=== PATIENT | male | born 1945 | race African-American/Black ===

== ENCOUNTER → 2017-02-02 | Outpatient (CLI) | payer MEDICARE, OTHER ==
[~2017-02-02] MED LIST: ACCU-CHEK1 COMB.PKG; ADVIL200 M1 PO; AMARYL2 MG PO; AMLODIPINE BESY10 MG PO; ASPIRIN EC81 M1 PO; ASPIRIN81 M1 PO; BENADRYL25 M1 PO; BP MEDS; CIPRO; CIPRO PO; COZAAR100 MG PO; DOXYCYCLINE PO; EPIPEN0.3 MG/0.1 IM; FLAGYL PO; GERITOL COMPLETE; HYDROCODON-ACE1 EAC9 PO; IBUPROFEN; LOSARTAN POTASS50 MG PO; METFORMIN; METFORMIN PO; MICARDIS HCT; MILK OF MAGNESIA PO; NAPROXEN PO; NORVASC PO; NORVASC10 MG PO; OMNICEF300 MG PO; PEPCID AC20 M2 PO; PERCOCET5/325 PO; PREDNISONE PO; SULAR; TRAMADOL HCL50 M1 PO; TYLOX 5/500 CAP1 CAP; VICODIN 5/1 TAB 5/50 PO
--- NOTE | ~2017-02-02 | MR113 ---
[facility] A Service of [facility] & [facility] RADIOLOGY TEXT RESULTS PATIENT: LYN BOB LOCATION: [facility] : 44 UNIT #: [id number] AGE: [address]: Brad Smith MD SEX: M ORDER DR: [id number] [address] [address] [id number] O MR#: [id number] Acc #: [id number] NAME: LYN BOB. : 1945 SEX: M STUDY DATE/TIME: 02/02/2017 15:39 UNIT: [facility] ROOM: STUDY DESCRIPTION: MR Lumbar Wo Contrast Attending Physician: Brad Smith M.D. Referring Physician: Brad Smith M.D. Ordering Physician: Brad Smith M.D. Primary Care Physician: Brad Smith M.D. MRI CENTER REPORT This report is preliminary unless electronic signature is present. EXAM MRI of the lumbar spine without contrast dated 02/02/2017. COMPARISON MRI lumbar spine without contrast dated 10/12/2006. HISTORY Low back pain with right-sided radiculopathy for a week. Decreased range of movement. Unstable. Prior history of prostate cancer diagnosed in 2003. FINDINGS Multisequence, multiplanar imaging of the lumbar spine was obtained without contrast. Vertebral body heights are preserved. There is mild retrolisthesis of L1 with respect to L2 and anterolisthesis of L4 with respect to L3 and L5 by 1-2 mm. Conus terminates at L1. Signal of conus and cauda equina are within normal limits. There is mild edema noted within the intraspinous ligament of L4-5 with some inflammatory change in this region. Adjacent bones do not demonstrate any edema. Retroperitoneum demonstrates multiple bilateral renal lesions which are incompletely characterized on the current study. T12-L1: Disc osteophyte complex with superimposed right central to left subarticular broad-based disc protrusion which is most prominent in the left central region. Mild bilateral facet changes, mild canal stenosis is seen without neural foraminal narrowing. L1-2: Disc osteophyte complex with superimposed left maerxav-kj-dqvjr subarticular moderate protrusion which is most prominent in the right central region. Mild bilateral facet changes and ligamentum flavum thickening are noted with moderate canal stenosis. Mild right lateral recess and mild inferior bilateral neural foraminal narrowing are present. [facility] A Service of [facility] & [facility] RADIOLOGY TEXT RESULTS PATIENT: LYN BOB [id number] 44 UNIT #: [id number] AGE: [address]: Brad Smith MD SEX: M ORDER DR: L2-3: Moderate concentric disc bulge with superimposed uzoch-sj-qvya central protrusion with a suspicious extruded component in the right central region measuring about a centimeter in height. Minimal superior and inferior migration is seen. Severe canal stenosis, moderate bilateral facet hypertrophic changes, ghjwvcxp-sv-piedvy bilateral ligamentum flavum thickening, mild to moderate right and jngzzqhe-sd-itvano left lateral recess stenosis are noted. Small bilateral foraminal to extraforaminal broad-based protrusions are noted with mild inferior bilateral neural foraminal narrowing. L3-4: Moderate disc bulge with superimposed right central to left subarticular moderate broad-based protrusion with an extruded component in the left subarticular region. Utfmhsfi-fo-vwakrx left and mild to moderate right facet hypertrophic changes are noted with severe bilateral ligamentum flavum thickening. Severe canal stenosis is seen with moderate to severe right and severe left lateral recess stenosis. Moderate bilateral neural foraminal narrowing is seen. L4-5: Moderate disc bulge with very severe left and mzifgari-mk-eeibnf right facet hypertrophic change. Severe bilateral ligamentum flavum thickening is noted with severe canal stenosis. Moderate to severe right and severe left lateral recess stenosis are noted with moderate bilateral neural foraminal narrowing. Edema and inflammation is noted in the intraspinous ligament and adjacent soft tissue. L5-S1: Moderate disc bulge with superimposed left central annular fissure. Mild bilateral facet changes are noted with mild bilateral lateral recess stenosis and fgsc-zo-wqlsgnng bilateral neural foraminal narrowing. IMPRESSION 1. Degenerative changes are at multiple levels, worst at L2-3 to L4-5 levels as described above with significant canal stenosis, lateral recess stenosis, and neural foraminal narrowing. 2. Bilateral renal multiple lesions are noted which are incompletely characterized on the current study. Some of them are also noted in the prior MRI lumbar spine from 2005 but it appears to have worsened in the interval. Correlate with prior CT abdomen from 12/30/2009 which demonstrates multiple bilateral renal cysts. Dictated by... Aquilino Garcia M.D. THIS IS AN ELECTRONICALLY VERIFIED REPORT Aquilino Garcia M.D. at 02/04/2017 2:56 PM CPR/tmw [facility]. [facility] A Service of [facility] RADIOLOGY TEXT RESULTS PATIENT: LYN BOB LOCATION: [facility] : 44 UNIT #: [id number] AGE: [address]: Brad Smith MD SEX: M ORDER DR: TD: 02/03/2017 09:47 JOB #: [id number] MRI CENTER REPORT Page 1 of 1
== END | disposition home or self-care (01) ==
LOC: SMRI 15:13
DX: M54.16 Radiculopathy, lumbar region (principal); M48.06 Spinal stenosis, lumbar region; M43.16 Spondylolisthesis, lumbar region; M25.78 Osteophyte, vertebrae; M51.26 Other intervertebral disc displacement, lumbar region; M51.86 Other intervertebral disc disorders, lumbar region; N28.89 Other specified disorders of kidney and ureter
CPT/HCPCS: 72148

== ENCOUNTER → 2017-03-16 | Outpatient (CLI) | payer MEDICARE, OTHER ==
--- NOTE | ~2017-03-16 | CT3 ---
[facility] A Service of [facility] & [facility] RADIOLOGY TEXT RESULTS PATIENT: LYN BOB LOCATION: [facility] : 44 UNIT #: [id number] AGE: [address]: Noe Hernández MD SEX: M ORDER DR: [id number] [facility] [address] [place], [place] [address] [id number] O MR#: [id number] Acc #: [id number] NAME: LYN BOB. : 1945 SEX: M STUDY DATE/TIME: 03/16/2017 12:19 UNIT: [facility] ROOM: STUDY DESCRIPTION: CT Abd and Pelv WWo Cont Attending Physician: Noe Hernández M.D. Referring Physician: Noe Hernández M.D. Ordering Physician: Noe Hernández M.D. Primary Care Physician: Brad Smith M.D. MEDICAL IMAGING REPORT This report is preliminary unless electronic signature is present EXAM CT abdomen and pelvis with and without contrast 03/16/2017 INDICATION Incompletely characterized renal lesions on recent MRI. TECHNIQUE CT of the abdomen and pelvis was performed with and without contrast using multiphase renal protocol. Coronal, sagittal reformatted images were obtained. This CT exam was performed with one or more of the following radiation dose reduction techniques: automatic exposure control, adjustment of mA and/or kV according to patient size, and iterative reconstruction. Compared with lumbar spine from 01/28/[address] of the abdomen and pelvis from 12/30/2009. FINDINGS The lung bases are clear. The liver is unremarkable. Cholelithiasis. The spleen is unremarkable. Noncontrast imaging of the kidneys demonstrates a tiny nonobstructing stone in the lower pole of the left kidney and also a couple of tiny nonobstructing stones within the right kidney. There are multiple bilateral renal cysts. No evidence for solid mass. No hydronephrosis. There is a small left adrenal gland adenoma and some mild thickening of the right adrenal gland. The pancreas is unremarkable. PELVIS: Urinary bladder is unremarkable. Diverticulosis. There is some minimal stranding about the distal descending colon which may indicate some minimal diverticulitis. Correlate clinically with any pain. Bone windows demonstrate degenerative changes of the lumbar spine. IMPRESSION 1. Bilateral renal cysts. No solid renal mass. [facility] A Service of [facility] & [facility] RADIOLOGY TEXT RESULTS PATIENT: LYN BOB LOCATION: [facility] : 44 UNIT #: [id number] AGE: [address]: Noe Hernández MD SEX: M ORDER DR: 2. Bilateral tiny nonobstructing renal calculi. 3. Extensive colonic diverticulosis. Focal area of minimal stranding about the distal descending colon may reflect some mild diverticulitis. Correlate clinically. Dictated by... Travis Thompson M.D. THIS IS AN ELECTRONICALLY VERIFIED REPORT Travis Thompson M.D. at 03/18/2017 9:08 AM Erik TD: 03/16/2017 18:50 JOB #: [id number] MEDICAL IMAGING REPORT Page 1 of 1 COPY
[2017-03-16 16:11] LABS: POC - CREATININE 1.37 mg/dL (0.64-1.27); POC - GFR >60.0 mL/min (>60)
== END | disposition home or self-care (01) ==
LOC: CCAT 10:58
PROVIDERS: Urology
DX: D49.4 Neoplasm of unspecified behavior of bladder (principal); N20.0 Calculus of kidney; K57.30 Diverticulosis of large intestine without perforation or abscess without bleeding; N28.1 Cyst of kidney, acquired
CPT/HCPCS: 74178; 82565; Q9967

== ENCOUNTER 2017-04-12 19:19 | Inpatient (IN) | payer MEDICARE, OTHER ==
--- NOTE | ~2017-04-12 | CR72 ---
[facility] A Service of [facility] & [facility] RADIOLOGY TEXT RESULTS PATIENT: LYN BOB LOCATION: [facility] [id number] : 43 UNIT #: [id number] AGE: [address]: Sabina White MD SEX: M ORDER DR: [id number] [facility] [address] [place], [place] [address] [id number] I MR#: [id number] Acc #: [id number] NAME: LYN BOB. : 1945 SEX: M STUDY DATE/TIME: 04/15/2017 17:05 UNIT: [facility] ROOM: [facility] STUDY DESCRIPTION: CR Chest Single View Portable Attending Physician: Sabina White M.D. Ordering Physician: Sabina White M.D. Primary Care Physician: Brad Smith M.D. MEDICAL IMAGING REPORT This report is preliminary unless electronic signature is present EXAM Portable chest HISTORY Shortness of air. Central line placement today. FINDINGS Right IJ central line tip is in the right atrium, approximately 5 cm beyond the junction of the SVC and right atrium. No pneumothorax. Old healed fractures lateral right fifth, sixth and seventh ribs. The cardiac and mediastinal contours are normal. IMPRESSION Right IJ central line tip in the right atrium, 5 cm beyond the junction of the SVC and right atrium. No active disease in the lungs. No pneumothorax. Dictated by... Al Olson M.D. THIS IS AN ELECTRONICALLY VERIFIED REPORT Al Olson M.D. at 04/23/2017 10:33 PM DFL/pcl TD: 04/16/2017 00:12 JOB #: [id number] MEDICAL IMAGING REPORT Page 1 of 1 COPY
--- NOTE | ~2017-04-12 | CT2 ---
[facility] A Service of [facility] & [facility] RADIOLOGY TEXT RESULTS PATIENT: LYN BOB [facility] UNIT #: [id number] AGE: [address]: Sabina White MD SEX: M ORDER DR: [id number] [facility] [address] [place], [place] [address] [id number] I MR#: [id number] Acc #: [id number] NAME: LYN BOB. : 1945 SEX: M STUDY DATE/TIME: 04/15/2017 13:04 UNIT: [facility] ROOM: 239 STUDY DESCRIPTION: CT Abd and Pelv W Cont Attending Physician: Sabina White M.D. Ordering Physician: Sabina White M.D. Primary Care Physician: Brad Smith M.D. MEDICAL IMAGING REPORT This report is preliminary unless electronic signature is present EXAM CT abdomen and pelvis. INDICATIONS Lower abdominal pain for [address] of the abdomen and pelvis with p.o. and IV contrast. Coronal and sagittal reconstructions were obtained. 100 mL Isovue-370 IV contrast was utilized. This CT exam was performed with one or more of the following radiation dose reduction techniques: automatic exposure control, adjustment of mA and/or kV according to patient size, and iterative reconstruction. COMPARISON CT abdomen and pelvis dated 04/12/2017. FINDINGS ABDOMEN: There has been development of moderate ascites and moderate free intraperitoneal air, indicative of a perforation. There is extensive diverticulosis; however, no focal area of diverticulitis. There is enteric contrast within the colon. No extravasation of contrast into the peritoneal cavity. The appendix is normal. The small bowel is dilated. There is a focal transition site in the left mid abdomen near the terminal ileum. The small bowel loops measure up to 3.5 cm. The colon is decompressed. There is some mild atelectasis that developed in both lung bases. There are small bilateral pleural effusions. The liver is unchanged. Multiple calculi are identified in the gallbladder. There is atrophy of the pancreas. The spleen is STS. [facility] A Service of [facility] & [facility] RADIOLOGY TEXT RESULTS PATIENT: LYN BOB [address]ATION: [address] : 43 UNIT #: [id number] AGE: [address]: Sabina White MD SEX: M ORDER DR: unremarkable. There is a nodule in the inferior left adrenal gland, measuring 2.4 cm. This has signal intensity of a benign adenoma on the previous noncontrasted study. Several benign cysts are identified in the kidneys. There are a few nonobstructing renal calculi. No hydronephrosis. The abdominal aorta is normal in caliber. There is some atherosclerotic disease at the origin of the superior mesenteric artery; however, it is patent. PELVIS: Moderate ascites. No pelvic mass or free pelvic fluid. Bladder is decompressed. The prostate is presumed surgically absent. No acute osseous abnormalities. IMPRESSION 1. Interval development of a moderate volume of ascites and moderate free intraperitoneal air. This is indicative of bowel perforation. 2. Development of moderate small bowel thickening with moderate small bowel dilation, suggestive of a small bowel obstruction. There is a transition site in the left abdomen near the distal ileum. No discrete mass or lesion is identified in this area. Of note, the colon is fairly decompressed. 3. There is extensive colonic diverticulosis; however, no evidence of acute diverticulitis. 4. Please note the source of the bowel perforation is not clearly identified. 5. The findings were paged to Dr. White at the time listed. Dictated by... Perez Lora M.D. THIS IS AN ELECTRONICALLY VERIFIED REPORT Perez Lora M.D. at 04/15/2017 4:53 PM CHILANGO/raysa TD: 04/15/2017 15:27 JOB #: [id number] MEDICAL IMAGING REPORT Page 1 of 1 COPY
--- NOTE | ~2017-04-12 | OR ---
Unit #: [id number] #: [id number] Patient: LYN BOB [id number] [address] [place], [place] [address] [id number] I MR#: [id number] NAME: LYN BOB. ROOM: [facility] Date of Procedure: 04/15/2017 Admission Date: 04/13/2017 Surgeon: Patel Traylor M.D. : 1945 Attending Physician: Sabina White M.D. Primary Care Physician: Brad Smith M.D. OPERATIVE REPORT PREOPERATIVE DIAGNOSES Perforated diverticulitis with sepsis. POSTOPERATIVE DIAGNOSES Perforated diverticulitis with sepsis with dense intraperitoneal adhesions. PROCEDURES PERFORMED Exploratory laparotomy, massive adhesiolysis, sigmoid colon resection and colostomy. ANESTHESIA General endotracheal. COMPLICATIONS None. ESTIMATED BLOOD LOSS Minimal. DESCRIPTION OF PROCEDURE After the patient was prepped and draped in usual fashion, a midline laparotomy incision was made from the pubic bone to just above the umbilicus. The peritoneal cavity was opened to approximate the skin incision with electrocautery. Retractors were placed. There was turbid fluid within the peritoneal cavity. This was sent for culture. There was some free air. The small bowel was distended. There were areas in the wall of the bowel that were contused. This was swept out of the way. The sigmoid colon was quickly identified. The descending colon and sigmoid colon were around a fairly short mesentery. There was a hard phlegmonous mass in the left pelvic wall. There was a loop of small bowel stuck down to this medially and this was released. The perforation with sigmoid colon was identified. An area of sigmoid colon was looped back upon itself and adhesed. It was about 10 to 15 cm long, which comprised involving abscess cavity. The white line of Toldt was incised. The colon was rotated medially. The dense adhesions were taken down with electrocautery dissection. The colon was released from the sidewall. This took quite a bit of time to accomplish. At the junction of the sigmoid colon, rectum was identified. The colon was divided at the sacral promontory with a LETITIA stapler. The mesentery was scored with electrocautery close to the bowel wall and the mesentery was taken down between Marietta clamps and 0 silk ties back to just proximal to the junction of the descending and sigmoid colons. The colon was divided at this point Unit #: [id number] #: [id number] Patient: LYN BOB with a LETITIA stapler and the specimen was delivered and sent to Pathology. The left colon was mobilized further up toward the splenic flexure in order to gain length. With this, the small bowel was then run from the ligament of Treitz down to the ileocecal valve. There was no evidence of a mechanical blockage. There were multiple dilated loops, however. Again, there were some contusion to the small bowel wall noted. The gallbladder was palpated. It was high up. I had to extend the incision another 15 cm in order to do a cholecystectomy. Since the patient was asymptomatic, elected not to do that at that time. With this, an ellipse of skin was grasped with a Yulissa in the left lower quadrant. Ellipse of skin was excised with a scalpel. A cruciate incision was made into the peritoneal cavity with electrocautery in the usual fashion. The stump of the descending colon was brought up through this, secured to the fascia in 4 quadrants with 2-0 silk stick ties. The peritoneal cavity was then irrigated with 3 L of saline, lots of bacitracin, and suctioned free. A drain was placed through separate stab incision down the left gutter and into the pelvis and secured to the skin with a silk ligature. The fascia was closed with running #1 looped PDS. Skin closed with clips. The colostomy was then opened and matured with interrupted sutures of 4-0 Vicryl. Dressing applied. Colostomy bag applied. The patient was taken to the recovery room in good condition. Dictated by... Albino Henderson/janes TD: 04/15/2017 23:32 JOB #: [id number] OPERATIVE REPORT Page 1 of 1 X Patel Traylor PROCEDURE OPERATIVE NOTE
--- NOTE | ~2017-04-12 | CO ---
Unit #: [id number] #: [id number] Patient: LYN SCOTT [id number] [address] [place], [place] [address] [id number] I MR#: [id number] NAME: LYN SCOTT. ROOM: 576 Age: 71 Sex: M Admission Date: 04/13/2017 : 1945 Attending Physician: Sabina White M.D. Primary Care Physician: Brad Smith M.D. Consultation Date: 04/13/2017 CONSULTATION REPORT REASON FOR CONSULTATION 1. Left lower quadrant pain. 2. Diverticulitis. HISTORY OF PRESENT ILLNESS Thank you very much for asking us to see Mr. Scott. He is a 71-year-old black male, who have presented with several-day history of left lower quadrant pain and discomfort. He has had nausea as well. He states the pain worsened. He came to the emergency room for further evaluation. His CAT scan showed extensive sigmoid diverticulitis with either a large sigmoid diverticulum or a small contained microperforation. There is no drainable abscess seen. He denies GI bleeding. No pulmonary symptoms. His past history is remarkable for robotic prostatectomy. He states his last colonoscopy was in 2014 and he was told he had diverticulosis. He states he had a history of diverticulitis 10 to 12 years ago. He presents at this time for further evaluation and treatment. PAST MEDICAL HISTORY Hypertension; diabetes; hyperlipidemia; history of prostate cancer, status post prostatectomy; colonic polyps; right ankle fracture with ORIF; left hand surgery. ALLERGIES Lisinopril. MEDICATIONS Ultram, aspirin, Cozaar, Cipro, Norvasc. FAMILY HISTORY Diabetes. High blood pressure. SOCIAL HISTORY Positive for tobacco use and alcohol use. REVIEW OF SYSTEMS Negative except for above. IMMUNIZATION STATUS Unknown. PHYSICAL EXAMINATION GENERAL: Well-developed, well-nourished, black male, in no apparent distress. Unit #: [id number] #: [id number] Patient: LYN SCOTT VITAL SIGNS: Afebrile. Vital signs stable. NECK: Supple. No thyromegaly or adenopathy. HEENT: Sclerae nonicteric. Extraocular movements are intact. BACK: No CVA or spinous tenderness. ABDOMEN: Flat, soft, tender in the left lower quadrant, but no rebound, peritoneal signs, or masses. Well healed periumbilical incision. EXTREMITIES: No calf tenderness. DIAGNOSTIC STUDIES LABORATORY RESULTS: Reveal the patient to have a CMP that shows a glucose of 119 and normal liver function studies and electrolytes. Lipase was 20. Lactic acid 1.6. His white count is 8.7 with a hemoglobin 15.3, hematocrit 46.9, MCV of 94.9, platelet count 209,000. IMAGING STUDIES: CT scan as noted above. IMPRESSION A 71-year-old black male with left lower quadrant pain and on CT scan, diverticulitis with a microperforation versus a large sigmoid diverticulum. There is no drainable abscess seen. There is no diffuse free air seen. The patient states he feels much better today. We have explained to the patient about diverticulitis with this and we have recommended IV fluids and IV antibiotics as well as some sips of noncarbonated clear liquids. We have explained that if we are able to allow this to resolve with IV antibiotics, he would most likely be discharged home in several days on oral antibiotics and would most likely need repeat colonoscopy in several weeks. All this has been fully explained to the patient in detail. He understands completely and requests we proceed with the current treatment plan. Dictated by... Albino Desai/janes TD: 04/14/2017 01:19 JOB #: [id number] CC: [facility] CONSULTATION REPORT Page 1 of 1 X Anuel Irwin MD X CONSULTATION REPORT
--- NOTE | ~2017-04-12 | TOC ---
Unit #: [id number] #: [id number] Patient: LYN SCOTT [id number] [address] [place], [place] [address] [id number] I MR#: [id number] NAME: LYN SCOTT. ROOM: 239 Age: 71 Sex: M Admission Date: 04/13/2017 : 1945 Attending Physician: Sabina White M.D. Primary Care Physician: Brad Smith M.D. TRANSFER OF CARE SUMMARY PRINCIPAL DIAGNOSES 1. Acute sigmoid diverticulitis with questionable microperforation. 2. Nausea and vomiting induced bigeminy, resolved. 3. Diabetes mellitus type 2, diet controlled. 4. Hypertension. 5. Hyperlipidemia. 6. History of prostate cancer, status post prostatectomy. 7. Chronic kidney disease stage 3, baseline creatinine of 1.2. 8. Tobaccoism. CONSULTANTS Dr. Irwin, general surgery. DIAGNOSTIC DATA IMAGING: CT scan of the abdomen and pelvis without contrast on 04/12/2017, with extensive perisigmoid inflammatory changes consistent with diverticulitis. There is a sizeable air collection within the adjacent sigmoid colon representing large diverticulum versus perforation. Uncomplicated cholelithiasis also noted. Multiple nonobstructing bilateral renal stones noted. CLINICAL HISTORY/HOSPITAL COURSE Mr. Scott is a very nice 71-year-old male who presented to the emergency department with abdominal pain. CT scan revealed acute diverticulitis. Upon presentation, the patient was afebrile and white blood cell count was normal. But again, CT scan revealed findings as noted and the patient was subsequently admitted. LSA was consulted and the patient was placed on empiric IV antibiotics in addition to IV fluids. He was maintained with sips only. Over the course of the next 24 hours the patient's pain improved and he was started on a clear liquid diet. He did develop a fever of almost 102. However, his pain continued to improve. This morning the patient has now been afebrile for 24 hours, but is having increasing abdominal distension after starting a diet. Given questionable microperforation, I am going to repeat CT scan to reevaluate. Will continue on IV antibiotics, repeat CT and further hospital course to be dictated as an addendum. Dictated by... Sabina White M.D. KEH/gz Unit #: [id number] #: [id number] Patient: LYN SCOTT TD: 04/15/2017 12:12 JOB #: [id number] TRANSFER OF CARE SUMMARY Page 1 of 1 X Sabina White MD X TRANSFER OF CARE SUMMARY
--- NOTE | ~2017-04-12 | TOC ---
Unit #: [id number] #: [id number] Patient: LYN BOB [id number] [address] [place], [place] [address] [id number] MR#: [id number] NAME: LYN BOB. ROOM: 554 Age: 71 Sex: M Admission Date: 04/13/2017 : 1945 Attending Physician: Sabina White M.D. Primary Care Physician: Brad Smith M.D. TRANSFER OF CARE SUMMARY ADDENDUM This is a continuation of a Transfer of Care note done on April 15, 2017. Date of discharge is April 20, 2017. ADDITIONAL PRINCIPAL DIAGNOSES 1. Perforated sigmoid diverticula, status post sigmoid resection and subsequent colostomy placement. 2. Acute kidney injury, prerenal, now resolved. Discharge creatinine 1.1. ADDITIONAL PROCEDURES 1. Exploratory laparotomy, massive adhesiolysis, sigmoid colon resection and colostomy on April 15, 2017. 2. CT scan of abdomen and pelvis with contrast on April 15, 2017, with development of moderate volume of ascites and moderate free intraperitoneal air. Small bowel thickening with moderate small bowel dilatation noted. Extensive colonic diverticulosis. No evidence of acute diverticulitis. 3. Chest x-ray on April 15, 2017. HOSPITAL COURSE Since last dictation, on the evening of the , the patient's CT scan returned revealing bowel perforation. I contacted surgery and patient emergently underwent exploratory laparotomy with sigmoid colon resection and colostomy. Fortunately, post surgery patient has done exceptionally well. He is now eating a regular diet, having colostomy output and minimal amounts of pain. Postoperatively, he did have a mild bump in creatinine up to 1.6 but IV fluids were adjusted and creatinine returned to his baseline. Plan is to discharge home today with close followup with surgery as an outpatient. DISCHARGE CONDITION Stable. DISCHARGE STATUS Discharge to home. Will have home health see for colostomy care. DISCHARGE MEDICATIONS 1. Flagyl 500 mg p.o. t.i.d. for another five days. 2. Omnicef 300 mg p.o. b.i.d. for another five days. 3. [place] 7.5/325, one tablet p.o. q.4 hours p.r.n. for pain. 4. Aspirin 81 mg daily. 5. Cozaar 100 mg daily. Unit #: [id number] #: [id number] Patient: LYN BOB 6. Norvasc 10 mg daily. DISCHARGE INSTRUCTIONS The patient was instructed to follow a heart healthy diet. He can shower as necessary and he has been instructed regarding colostomy care. He can increase his activity as tolerated. Should not drive while using pain medication. FOLLOWUP Patient will follow up with [facility], specifically Dr. Irwin, in approximately one week. The patient is to follow up with her primary care provider, Dr. Smith, in approximately two weeks. Dictated by... Sabina White M.D. PETTY/julio cesar TD: 04/21/2017 12:27 JOB #: [id number] TRANSFER OF CARE SUMMARY Page 1 of 1 X Sabina White MD X TRANSFER OF CARE SUMMARY
--- NOTE | ~2017-04-12 | HP ---
Unit #: [id number] #: [id number] Patient: LYN BOB [id number] [address] [place], [place] [address] [id number] MR#: [id number] NAME: LYN BOB. ROOM: 576 Age: 71 Sex: M Admission Date: 04/13/2017 : 1945 Attending Physician: Xenia Zazueta M.D. Primary Care Physician: Brad Smith M.D. HISTORY AND PHYSICAL CHIEF COMPLAINT Acute diverticulitis, rule out microperforation, episode of bigeminy. HISTORY This pleasant 71-year-old male with hypertension, diverticular disease, is admitted for diverticulitis. The patient is currently taking ciprofloxacin for possible urinary tract infection. Two days ago developed nausea. Yesterday, developed increasing abdominal pain, distention, radiating to his back. The pain became so severe he became lightheaded, diaphoretic, mildly short of breath. On presentation to this emergency department late last evening, broke out into a cold sweat and chills. His vital signs were stable although his initial EKG did show bigeminy. CT scan performed shows extensive diverticulitis with either a microperforation or sigmoid diverticula. In the ER, he was given morphine, Zofran, IV fluids, currently is feeling better. He states that his last colonoscopy in 2014 revealed two polyps which were removed. He did have an episode of diverticulitis about ten years ago as well. He also tells me that he had recent cardiac workup which was negative. PAST MEDICAL HISTORY 1. Hypertension. 2. Diet controlled diabetes. 3. Hyperlipidemia. 4. Recent cardiac workup which was negative a couple of months ago. 5. Prostate cancer, status post prostatectomy. 6. Polyps in the colon removed. Last colonoscopy around 2014 per patient. 7. ORIF right ankle fracture. 8. Left hand surgery. ALLERGIES Lisinopril. HOME MEDICATIONS 1. Ultram 50 mg t.i.d. 2. Aspirin 81 mg daily. 3. Cozaar 100 mg daily. 4. Cipro 500 mg b.i.d. 5. Norvasc 10 mg daily. FAMILY HISTORY Hypertension, diabetes mellitus. Unit #: [id number] #: [id number] Patient: LYN BOB SOCIAL HISTORY The patient lives with his . He smokes one pack per day of tobacco, and drinks an occasional beer. REVIEW OF SYSTEMS Notable for abdominal pain and distention, lightheadedness, shortness of breath, cold sweats, chills, diverticular disease, hypertension, above mentioned surgeries, hyperlipidemia, diet controlled diabetes mellitus and prostate cancer. All other systems were reviewed and are otherwise negative. PHYSICAL EXAMINATION GENERAL APPEARANCE: Pleasant 71-year-old male, currently in no acute distress. VITAL SIGNS: Temperature 98.9, pulse 65, respirations 17, blood pressure 116/74. O2 saturation is 100% on room air. HEENT: Eyes PERRLA. Extraocular muscles are intact. Pharynx is benign. NECK: Supple without adenopathy or thyromegaly. CHEST: Mild expiratory wheeze. CARDIAC: Normal S1 and S2 without S3, S4 or murmur. ABDOMEN: Bowel sounds are present. The patient has generalized abdominal tenderness which localizes more to the left lower quadrant but no rebound or guarding at this time. EXTREMITIES: Without edema. Pedal pulses diminished on the right foot as compared to the left. NEUROLOGIC: The patient is awake, alert, oriented. Cranial nerves are intact. Equal strength throughout. DIAGNOSTIC STUDIES LABORATORY: Hematocrit is 46.9, normal white count and platelet count. SMA-12 - glucose 119, normal lipase. Cardiac markers negative. Urinalysis - 1+ protein, 2+ blood with 10-25 red cells, no white cells. IMAGING: CT scan shows extensive diverticulitis, small perforation versus sigmoid diverticulum. Gallstones, multiple nonobstructing renal stones. CARDIOVASCULAR: Initial EKG showed bigeminy with an old right bundle branch block, LVH. ASSESSMENT 1. Acute diverticulitis, rule out microperforation: The patient currently is taking ciprofloxacin. 2. Episode of bigeminy when nauseous and in a considerable amount of pain. Patient reports a recent negative cardiac workup. 3. Hypertension. 4. Hyperlipidemia. 5. Diet controlled adult onset diabetes mellitus. 6. Tobacco abuse. 7. Prostate cancer, status post prostatectomy. PLANS 1. IV fluids and supportive treatment. 2. Zosyn and Flagyl for now and ask [facility] to see. If a microperforation is not present, will discontinue the Flagyl. Unit #: [id number] #: [id number] Patient: LYN BOB 3. Obtain prior cardiac workup. 4. SCDs for DVT prophylaxis. 5. Repeat labs in the morning. Dictated by Xenia Zazueta M.D. AML/df TD: 04/13/2017 06:47 JOB #: [id number] HISTORY AND PHYSICAL Page 1 of 1 X Xenia Zazueta MD X HISTORY AND PHYSICAL
--- NOTE | ~2017-04-12 | EKG ---
PATIENT: LYN BOB UNIT #: [id number] Ventricular Rate: 112 BPM Atrial Rate: 112 BPM P-R Interval: 130 ms QRS Duration: 126 ms Q-T Interval: 336 ms QTC Calculation(Bezet): 458 ms P [place]: 70 degrees Calculated R [place]: -76 degrees Calculated T [place]: 44 degrees Diagnosis Line: Sinus tachycardia Diagnosis Line: Possible Left atrial enlargement Diagnosis Line: Right bundle branch block Diagnosis Line: Left anterior fascicular block Diagnosis Line: Bifascicular block Diagnosis Line: Abnormal ECG Diagnosis Line: When compared with ECG of 12-APR-2017 19:54, Diagnosis Line: Premature ventricular complexes are no longer Diagnosis Line: Present Diagnosis Line: Vent. rate has increased BY 52 BPM Diagnosis Line: QRS duration has decreased Diagnosis Line: T wave inversion less evident in Anterior leads Diagnosis Line: Confirmed by BITA MONTEZ MD ([id number]) on Diagnosis Line: 04/16/2017 2:59:45 PM INTERPRETING MD: FABIANA
--- NOTE | ~2017-04-12 | CT4 ---
[facility] A Service of [facility] & [facility] RADIOLOGY TEXT RESULTS PATIENT: LYN BOB LOCATION: [facility] 576-01 : 44 UNIT #: [id number] AGE: [address]: Sabina White MD SEX: M ORDER DR: [id number] [facility] [address] [facility]. [place], [place] [address] [id number] I MR#: [id number] Acc #: [id number] NAME: LYN BOB. : 1945 SEX: M STUDY DATE/TIME: 04/12/2017 22:02 UNIT: [facility] ROOM: [facility] STUDY DESCRIPTION: CT Abd and Pelv Wo Cont Attending Physician: Xenia Zazueta M.D. Ordering Physician: Fleipe Del Cid D.O. Primary Care Physician: Brad Smith M.D. MEDICAL IMAGING REPORT This report is preliminary unless electronic signature is present EXAM CT abdomen and pelvis without contrast HISTORY 71-year-old male lower abdominal pain since April 11. History of diverticulitis. Periumbilical pain, worse today. COMPARISON CT abdomen and pelvis 03/16/[address] exam was performed with one or more of the following radiation dose reduction techniques: automatic exposure control, adjustment of mA and/or kV according to patient size, and iterative reconstruction. FINDINGS Axial images performed through the abdomen and pelvis following oral contrast only. Multiplanar reconstructed images reviewed at a workstation. ABDOMEN: Lung bases unremarkable. The liver and spleen appear normal. Multiple radiodensities noted in the dependent portion of the gallbladder consistent with gallstones. Pancreas and adrenal glands unremarkable. There are bilateral renal cortical cysts. There is also multiple bilateral renal calcifications which may represent nonobstructing stones. Stomach is contrast-filled. There is contrast in the proximal duodenum. Small bowel unremarkable. There is extensive alfredo-sigmoid inflammatory changes with bowel wall thickening. Extensive diverticular changes within the sigmoid colon. Findings all compatible acute diverticulitis. No evidence of abscess. There is a sizeable air collection, which could represent either a large diverticula or possibly a contained perforation. Recommend clinical followup to resolution. STS. [facility] A Service of [facility] & [facility] RADIOLOGY TEXT RESULTS PATIENT: LYN BOB LOCATION: [facility] 576-01 : 43 UNIT #: [id number] AGE: [address]: Sabina White MD SEX: M ORDER DR: PELVIS: Bladder and prostate unremarkable. Osseous structures and soft tissues unremarkable except for lower lumbar spine facet arthropathy and disc bulging contributing to mild multilevel spinal and foraminal stenosis. IMPRESSION 1. Extensive perisigmoid inflammatory changes in the setting of diverticulosis. Findings compatible acute diverticulitis. No evidence of perforation although there is a sizeable air collection within the adjacent sigmoid could represent a large diverticulum but a small contained perforation not excluded. Clearly no evidence of a drainable fluid collection or abscess. 2. Uncomplicated cholelithiasis. 3. Multiple nonobstructing bilateral renal stones. Dictated by... Katerine Thompson M.D. THIS IS AN ELECTRONICALLY VERIFIED REPORT Katerine Thompson M.D. at 04/13/2017 2:49 PM FEDERICO/marek TD: 04/13/2017 05:10 JOB #: [id number] MEDICAL IMAGING REPORT Page 1 of 1 COPY
--- NOTE | ~2017-04-12 | EKG ---
PATIENT: LYN BOB UNIT #: [id number] Ventricular Rate: 60 BPM Atrial Rate: 60 BPM P-R Interval: 130 ms QRS Duration: 152 ms Q-T Interval: 450 ms QTC Calculation(Bezet): 450 ms P [place]: 27 degrees Calculated R [place]: -42 degrees Calculated T [place]: 7 degrees Diagnosis Line: Sinus rhythm with frequent Premature ventricular Diagnosis Line: complexes in a pattern of bigeminy Diagnosis Line: Left axis deviation Diagnosis Line: Right bundle branch block Diagnosis Line: Abnormal ECG Diagnosis Line: When compared with ECG of 12-SEP-2012 12:22, Diagnosis Line: Premature ventricular complexes are now Present Diagnosis Line: T wave inversion no longer evident in Inferior Diagnosis Line: leads Diagnosis Line: T wave inversion more evident in Anterior leads Diagnosis Line: Confirmed by BITA MONTEZ MD ([id number]) on Diagnosis Line: 04/12/2017 10:57:36 PM INTERPRETING MD: FABIANA
[~2017-04-12 19:19] MED LIST changes: -ASPIRIN EC81 M1 PO; -CIPRO PO; -COZAAR100 MG PO; -FLAGYL PO; -HYDROCODON-ACE1 EAC9 PO; -NORVASC10 MG PO; -OMNICEF300 MG PO; -TRAMADOL HCL50 M1 PO
[2017-04-12 20:22] LABS: BASOPHIL% 0.4 % (0-2.5); EOSINOPHIL# 0.1 X10e3 (0-0.7); EOSINOPHIL% 0.8 % (0.0-7.0); HEMATOCRIT 46.9 % (38.0-50.0); HEMOGLOBIN 15.3 gm/dL (13.0-16.0); LYMPHOCYTE# 1.2 X10e3 (1.0-3.5); LYMPHOCYTE% 13.9 % (17.0-45.0); MEAN CELL VOLUME 94.9 FL (83-96); MEAN CORPUSCULAR HEMOGLOBIN 30.9 PG (28-34); MEAN CORPUSCULAR HGB CONC 32.6 g/dL (30-36); MEAN PLATELET VOLUME 7.7 FL (6.5-11.5); MONOCYTE# 0.4 X10e3 (0-1.0); MONOCYTE% 4.8 % (3.0-12.0); NEUTROPHIL% 80.1 % (40-75); PLATELET COUNT 209 X10e3 (140-420); RED BLOOD COUNT 4.94 X10e (3.90-5.60); RED CELL DISTRIBUTION WIDTH 15.2 % (11.0-15.5); WHITE BLOOD COUNT 8.7 X10e3 (4.0-10.5)
[2017-04-12 20:47] LABS: BILIRUBIN, DIRECT 0.1 mg/dL (0.0-0.2); BILIRUBIN,INDIRECT 0.6 mg/dL (0.0-0.9); BILIRUBIN,TOTAL 0.7 mg/dL (0.2-2.0); BUN/CREATININE RATIO 16.42; CREATININE SERUM 1.4 mg/dL (0.6-1.4); GLOM FILT RATE Estimated 57.8 mL/min (>60); POTASSIUM 3.6 mmol/L (3.5-5.1); PROTEIN TOTAL SERUM 7.5 g/dL (6.0-8.3)
[2017-04-12] MEDS ORDERED: ASPIRIN EC81 M1 PO (20:48)
[2017-04-12] MEDS ORDERED: COZAAR100 MG PO (20:48)
[2017-04-12] MEDS ORDERED: TRAMADOL HCL50 M1 PO (20:48)
[2017-04-12] MEDS ORDERED: CIPRO PO (20:49)
[2017-04-12] MEDS ORDERED: NORVASC10 MG PO (20:49)
[2017-04-12 20:56] LABS: DIFF IND NO
[2017-04-12 21:06] LABS: POC - CKMB 8.8 ng/mL (0.0-7.9); POC - TROPONIN <0.05 ng/mL (<=0.05)
[2017-04-12 21:28] LABS: URINE SOURCE CLEAN CATCH
[2017-04-12 21:34] LABS: URINE APPEARANCE CLEAR; URINE BILIRUBIN NEG (NEG); URINE BLOOD 2+ (NEG); URINE COLOR YELLOW; URINE GLUCOSE NEG (NEG); URINE KETONE TRACE (NEG); URINE LEUKOCYTE ESTERASE NEG (NEG); URINE NITRATE NEG (NEG); URINE PROTEIN 1+ (NEG); URINE SPECIFIC GRAVITY 1.026 (1.003-1.035)
[2017-04-12 21:36] LABS: CULTURE INDICATED? NO; URINE BACTERIA AUWI NEG (NEGATIVE); URINE SQUAMOUS EPITHELIAL CELL NONE SEEN /[HPF]; UWBCS1 AUWI 0-2 (0-5)
[2017-04-12 22:14] LABS: POC - CKMB 6.7 ng/mL (0.0-7.9); POC - TROPONIN <0.05 ng/mL (<=0.05)
[2017-04-15 06:38] LABS: HEMATOCRIT 44.7 % (38.0-50.0); HEMOGLOBIN 14.7 gm/dL (13.0-16.0); MEAN CELL VOLUME 94.7 FL (83-96); MEAN CORPUSCULAR HEMOGLOBIN 31.3 PG (28-34); MEAN PLATELET VOLUME 7.8 FL (6.5-11.5); RED BLOOD COUNT 4.71 X10e (3.90-5.60); RED CELL DISTRIBUTION WIDTH 14.9 % (11.0-15.5); WHITE BLOOD COUNT 9.6 X10e3 (4.0-10.5)
[2017-04-15 07:08] LABS: BUN/CREATININE RATIO 13.33; CALCIUM SERUM 8.6 mg/dL (8.4-10.2); CREATININE SERUM 1.2 mg/dL (0.6-1.4); GLOM FILT RATE Estimated 69.6 mL/min (>60); POTASSIUM 3.7 mmol/L (3.5-5.1)
[2017-04-15 16:13] LABS: ARTERIAL BLD GAS O2 SATURATION 94.6 % (90.0-100.0); ARTERIAL BLOOD GAS CARBOXY HB 0.8 %sat (0.0-9.0); ARTERIAL BLOOD GAS HCO3 21.7 mmol/L; ARTERIAL BLOOD GAS MET HB 0.6 %sat (0.0-2.0); ARTERIAL BLOOD GAS PCO2 31.6 mmHg (35.0-45.0); ARTERIAL BLOOD GAS pH 7.444 (7.350-7.450)
[2017-04-15 16:14] LABS: ARTERIAL BLOOD GAS ART SITE RIGHT BRACHIAL; ARTERIAL BLOOD GAS DELIVERY NASAL CANNULA; ARTERIAL BLOOD GAS PO2 73.7 mmHg (80.0-100); ARTERIAL DRAW? YES
[2017-04-15 17:59] LABS: BASOPHIL% 0.5 % (0-2.5); EOSINOPHIL% 0.3 % (0.0-7.0); HEMOGLOBIN 15.8 gm/dL (13.0-16.0); LYMPHOCYTE# 0.2 X10e3 (1.0-3.5); LYMPHOCYTE% 5.3 % (17.0-45.0); MEAN CELL VOLUME 94.2 FL (83-96); MEAN PLATELET VOLUME 7.8 FL (6.5-11.5); MONOCYTE# 0.2 X10e3 (0-1.0); MONOCYTE% 5.3 % (3.0-12.0); NEUTROPHIL# 3.9 X10e3 (1.5-7.1); NEUTROPHIL% 88.6 % (40-75); PLATELET COUNT 217 X10e3 (140-420); RED BLOOD COUNT 5.09 X10e (3.90-5.60); RED CELL DISTRIBUTION WIDTH 14.9 % (11.0-15.5)
[2017-04-15 18:04] LABS: DIFF IND NO; WHITE BLOOD COUNT 4.4 X10e3 (4.0-10.5)
[2017-04-15 18:15] LABS: ALBUMIN SERUM 3.4 g/dL (3.5-5.0); BILIRUBIN,TOTAL 0.7 mg/dL (0.2-2.0); BUN/CREATININE RATIO 13.07; CALCIUM SERUM 8.7 mg/dL (8.4-10.2); CREATININE SERUM 1.3 mg/dL (0.6-1.4); GLOM FILT RATE Estimated 63.2 mL/min (>60); POTASSIUM 3.8 mmol/L (3.5-5.1); PROTEIN TOTAL SERUM 7.1 g/dL (6.0-8.3)
[2017-04-16 05:21] LABS: HEMATOCRIT 45.4 % (38.0-50.0); HEMOGLOBIN 14.8 gm/dL (13.0-16.0); MEAN CELL VOLUME 95.4 FL (83-96); MEAN CORPUSCULAR HEMOGLOBIN 31.1 PG (28-34); MEAN CORPUSCULAR HGB CONC 32.6 g/dL (30-36); MEAN PLATELET VOLUME 8.3 FL (6.5-11.5); RED BLOOD COUNT 4.76 X10e (3.90-5.60); RED CELL DISTRIBUTION WIDTH 14.7 % (11.0-15.5)
[2017-04-16 05:30] LABS: WHITE BLOOD COUNT 10.6 X10e3 (4.0-10.5)
[2017-04-16 06:35] LABS: CALCIUM SERUM 7.9 mg/dL (8.4-10.2); GLOM FILT RATE Estimated 86.8 mL/min (>60); POTASSIUM 4.1 mmol/L (3.5-5.1)
[2017-04-17 05:43] LABS: HEMATOCRIT 40.3 % (38.0-50.0); HEMOGLOBIN 13.3 gm/dL (13.0-16.0); MEAN CELL VOLUME 93.9 FL (83-96); MEAN CORPUSCULAR HEMOGLOBIN 30.9 PG (28-34); MEAN PLATELET VOLUME 8.2 FL (6.5-11.5); RED BLOOD COUNT 4.3 X10e (3.90-5.60); RED CELL DISTRIBUTION WIDTH 15.2 % (11.0-15.5); WHITE BLOOD COUNT 11.9 X10e3 (4.0-10.5)
[2017-04-17 06:43] LABS: CALCIUM SERUM 8.6 mg/dL (8.4-10.2); CREATININE SERUM 1.5 mg/dL (0.6-1.4); GLOM FILT RATE Estimated 53.2 mL/min (>60); POTASSIUM 4.7 mmol/L (3.5-5.1)
[2017-04-18 06:03] LABS: BASOPHIL% 0.1 % (0-2.5); EOSINOPHIL# 0.1 X10e3 (0-0.7); EOSINOPHIL% 0.9 % (0.0-7.0); HEMATOCRIT 43.1 % (38.0-50.0); HEMOGLOBIN 13.9 gm/dL (13.0-16.0); LYMPHOCYTE# 0.4 X10e3 (1.0-3.5); LYMPHOCYTE% 3.5 % (17.0-45.0); MEAN CELL VOLUME 94.3 FL (83-96); MEAN CORPUSCULAR HEMOGLOBIN 30.5 PG (28-34); MEAN CORPUSCULAR HGB CONC 32.3 g/dL (30-36); MEAN PLATELET VOLUME 7.9 FL (6.5-11.5); MONOCYTE# 0.6 X10e3 (0-1.0); MONOCYTE% 5.3 % (3.0-12.0); NEUTROPHIL# 9.6 X10e3 (1.5-7.1); NEUTROPHIL% 90.2 % (40-75); PLATELET COUNT 220 X10e3 (140-420); RED BLOOD COUNT 4.57 X10e (3.90-5.60); WHITE BLOOD COUNT 10.6 X10e3 (4.0-10.5)
[2017-04-18 06:40] LABS: DIFF IND NO
[2017-04-18 07:03] LABS: BUN/CREATININE RATIO 14.37; CALCIUM SERUM 8.6 mg/dL (8.4-10.2); CREATININE SERUM 1.6 mg/dL (0.6-1.4); GLOM FILT RATE Estimated 49.2 mL/min (>60); POTASSIUM 4.1 mmol/L (3.5-5.1)
[2017-04-19 10:22] LABS: BUN/CREATININE RATIO 17.27; CALCIUM SERUM 8.4 mg/dL (8.4-10.2); CREATININE SERUM 1.1 mg/dL (0.6-1.4); GLOM FILT RATE Estimated 77.3 mL/min (>60)
[2017-04-20 06:44] LABS: HEMATOCRIT 38.2 % (38.0-50.0); HEMOGLOBIN 12.5 gm/dL (13.0-16.0); MEAN CORPUSCULAR HEMOGLOBIN 30.7 PG (28-34); MEAN CORPUSCULAR HGB CONC 32.6 g/dL (30-36); MEAN PLATELET VOLUME 7.8 FL (6.5-11.5); RED BLOOD COUNT 4.07 X10e (3.90-5.60); RED CELL DISTRIBUTION WIDTH 14.8 % (11.0-15.5); WHITE BLOOD COUNT 7.6 X10e3 (4.0-10.5)
[2017-04-20 07:52] LABS: BUN/CREATININE RATIO 16.36; CALCIUM SERUM 8.3 mg/dL (8.4-10.2); CREATININE SERUM 1.1 mg/dL (0.6-1.4); GLOM FILT RATE Estimated 77.3 mL/min (>60); POTASSIUM 3.7 mmol/L (3.5-5.1)
[2017-04-20] MEDS ORDERED: OMNICEF300 MG PO (10:22)
[2017-04-20] MEDS ORDERED: FLAGYL PO (10:22)
[2017-04-20] MEDS ORDERED: HYDROCODON-ACE1 EAC9 PO (10:23)
== END 2017-04-20 11:31 | disposition home health service (06) | DRG 330 ==
LOC: CED 19:19 → CEDOF 04-13 00:40 → C5C 04-13 00:48 → CED 04-13 00:48 → C5C 04-13 02:05 → CEDOF 04-13 02:05 → C5C 04-13 08:00 → C2A 04-14 16:35 → C5C 04-14 16:35 → CICCU2 04-15 15:49 → C5B 04-17 16:20
PROVIDERS: Emergency Medicine; Internal Medicine; Surgery
PROC: 0D1M0Z4 Bypass Descending Colon to Cutaneous, Open Approach (ICD-10-PCS; 2017-04-15)
PROC: 0DNN0ZZ Release Sigmoid Colon, Open Approach (ICD-10-PCS; 2017-04-15)
PROC: 05HM33Z Insertion of Infusion Device into Right Internal Jugular Vein, Percutaneous Approach (ICD-10-PCS; 2017-04-15)
PROC: 0DBN0ZZ Excision of Sigmoid Colon, Open Approach (ICD-10-PCS; principal; 2017-04-15 20:00)
DX: K57.20 Diverticulitis of large intestine with perforation and abscess without bleeding (principal); N17.9 Acute kidney failure, unspecified; K56.5 Intestinal adhesions [bands] with obstruction (postinfection); E87.2 Acidosis; N18.3 Chronic kidney disease, stage 3 (moderate); N39.0 Urinary tract infection, site not specified; E11.22 Type 2 diabetes mellitus with diabetic chronic kidney disease; S36.429A Contusion of unspecified part of small intestine, initial encounter; I12.9 Hypertensive chronic kidney disease with stage 1 through stage 4 chronic kidney disease, or unspecified chronic kidney disease; F17.210 Nicotine dependence, cigarettes, uncomplicated; Z85.46 Personal history of malignant neoplasm of prostate; E78.5 Hyperlipidemia, unspecified; Z86.010 Personal history of colon polyps; Z88.8 Allergy status to other drugs, medicaments and biological substances; Z79.82 Long term (current) use of aspirin; Z83.3 Family history of diabetes mellitus; Z82.49 Family history of ischemic heart disease and other diseases of the circulatory system; K66.0 Peritoneal adhesions (postprocedural) (postinfection); R00.8 Other abnormalities of heart beat
CPT/HCPCS: 36415; 36600; 71010; 74176; 74177; 80048; 80053; 80076; 81003; 82553; 82803; 82947; 83605; 83690; 84484; 85025; 85027; 87040; 87070; 87075; 87205; 88307; 93005; 94760; 96374; 96375; 96376; 97116; 97162; 97163; 97530; 99285; C9113; G8978-GP; G8979-GP; G8980-GP; J0330; J0360; J1100; J1170; J1650; J1815; J2270; J2405; J2543; J2550; J2710; J3010; Q9967

== ENCOUNTER 2017-05-05 16:28 | Emergency (ER) | payer MEDICARE, OTHER ==
[~2017-05-05 16:28] MED LIST changes: +ASPIRIN EC81 M1 PO; +CIPRO PO; +COZAAR100 MG PO; +FLAGYL PO; +HYDROCODON-ACE1 EAC9 PO; +NORVASC10 MG PO; +OMNICEF300 MG PO; +TRAMADOL HCL50 M1 PO
[2017-05-05 18:27] LABS: BASOPHIL% 0.7 % (0-2.5); EOSINOPHIL# 0.1 X10e3 (0-0.7); EOSINOPHIL% 2.6 % (0.0-7.0); HEMATOCRIT 39.8 % (38.0-50.0); LYMPHOCYTE% 22.8 % (17.0-45.0); MEAN CELL VOLUME 94.2 FL (83-96); MEAN CORPUSCULAR HEMOGLOBIN 30.8 PG (28-34); MEAN CORPUSCULAR HGB CONC 32.7 g/dL (30-36); MEAN PLATELET VOLUME 7.3 FL (6.5-11.5); MONOCYTE# 0.4 X10e3 (0-1.0); MONOCYTE% 8.2 % (3.0-12.0); NEUTROPHIL% 65.7 % (40-75); PLATELET COUNT 251 X10e3 (140-420); RED BLOOD COUNT 4.23 X10e (3.90-5.60); RED CELL DISTRIBUTION WIDTH 15.1 % (11.0-15.5); WHITE BLOOD COUNT 4.6 X10e3 (4.0-10.5)
[2017-05-05 18:39] LABS: DIFF IND NO
[2017-05-05 18:47] LABS: INR 1.1; PARTIAL THROMBOPLASTIN TIME 25.2 SECONDS (23.5-31.3); PROTHROMBIN TIME (PATIENT) 11.5 SECONDS (10.0-11.7)
[2017-05-05 19:04] LABS: BUN/CREATININE RATIO 14.16; CALCIUM SERUM 8.9 mg/dL (8.4-10.2); CREATININE SERUM 1.2 mg/dL (0.6-1.4); GLOM FILT RATE Estimated 69.6 mL/min (>60); POTASSIUM 3.5 mmol/L (3.5-5.1)
== END 2017-05-05 21:00 | disposition home or self-care (01) ==
LOC: CED 16:28
PROVIDERS: Emergency Medicine
DX: I82.4Z3 Acute embolism and thrombosis of unspecified deep veins of distal lower extremity, bilateral (principal); E11.9 Type 2 diabetes mellitus without complications; I10 Essential (primary) hypertension; M48.00 Spinal stenosis, site unspecified; F17.210 Nicotine dependence, cigarettes, uncomplicated; Z88.8 Allergy status to other drugs, medicaments and biological substances; Z79.82 Long term (current) use of aspirin; Z79.899 Other long term (current) drug therapy
CPT/HCPCS: 36415; 80048; 85025; 85610; 85730; 93970; 99283